=== PATIENT | male | born 1955 | race Caucasian/White ===

== ENCOUNTER → 2017-01-04 | Outpatient (CLI) | payer OTHER ==
--- NOTE | 2017-01-04 17:09 | KCIC ---
MR of the right shoulder Indication: Right shoulder pain after a fall on November 14, 2016. Technique: Standard multiplanar sequences are obtained. Findings: Acromioclavicular joint: Mildly degenerative, with undersurface small osteophytes. Rotator cuff: Complete full-thickness rupture of the supraspinatus and infraspinatus tendons, with 3 cm retraction and mild muscle atrophy. Acute edema within the infraspinatus and to a lesser extent supraspinatus muscles suggesting acute component of tear. Partial subscapularis tendon tear. Small effusion in the subdeltoid bursa. Mild rotator cuff muscle atrophy with fatty infiltration. Glenohumeral cartilage: No acute defect or advanced DJD. Fluid: Small joint effusion. Labrum: Mild signal in the superior labrum, but this is likely exaggerated by mild motion degradation. No definite labral tear. Biceps tendon: Mild tendinosis. Bones: Small cyst within the lesser tuberosity. This finding can be seen with coracohumeral impingement. No aggressive bone destruction or acute fracture. Impression:Large rotator cuff tear. Complete retracted supraspinatus and infraspinatus tendon rupture, and partial subscapularis tendon tear. Electronically signed by: Logan Juarez MD (01/04/2017 5:06 PM) [email or web address]
== END | disposition home or self-care (01) ==
LOC: KCIC MRI 15:59
PROVIDERS: ATTEND Family Medicine
DX: M75.101 Unspecified rotator cuff tear or rupture of right shoulder, not specified as traumatic (principal)
CPT/HCPCS: 73221

== ENCOUNTER → 2017-06-04 | Outpatient (CLI) | payer OTHER | END | disposition home or self-care (01) | LOC: KCIC MRI 08:31 | DX: S41.012A Laceration without foreign body of left shoulder, initial encounter (principal); S43.432A Superior glenoid labrum lesion of left shoulder, initial encounter; M75.22 Bicipital tendinitis, left shoulder; M43.06 Spondylolysis, lumbar region; M51.36 Other intervertebral disc degeneration, lumbar region; M48.061 Spinal stenosis, lumbar region without neurogenic claudication; X58.XXXA Exposure to other specified factors, initial encounter; Y93.89 Activity, other specified; Y92.89 Other specified places as the place of occurrence of the external cause; Y99.8 Other external cause status | CPT/HCPCS: 72148; 73221 ==

== ENCOUNTER → 2019-05-22 | Outpatient (CLI) | payer OTHER ==
--- NOTE | 2019-05-22 16:51 | KCIC ---
MRI Lumbar Spine without contrast History: Lumbago, acute low back pain into the left leg, shooting pain, bending injury Technique: Multiplanar, multi sequential noncontrast MR imaging was performed of the lumbar spine. Comparison: 06/04/2017 Findings: Lumbar vertebral body stature and AP alignment are overall maintained. There is variable mild to moderate L3-4, L2-3, and L1-2 degenerative disc disease, also mild L4-5 and L5-S1 degenerative disc disease. Degenerative disc disease has somewhat progressed L1-L2 through L3-4. There are multilevel annular tears such as posteriorly L1-L2 through L3-4. There is again hemangioma of the L2 vertebral body, also small focus of L1. Conus terminates at the superior aspect of L1. There is some nonspecific edema of the posterior subcutaneous fat of the lower back. T12-L1: Spinal canal and neural foramina are adequate. L1-L2: There is a minimal disc osteophyte complex and bulge slightly indenting the ventral thecal sac in the far lateral recesses. There is mild facet degenerative change. Neural foramina and spinal canal are overall adequate. L2-L3: There is again disc osteophyte complex and bulge slightly indenting the ventral thecal sac greater in the left lateral recess. There is mild prominence of posterior epidural fat centrally. There is minimal facet into change and buckling of the ligamentum flavum. There is mild narrowing of the far left lateral recess. There is probable small extrusion extending above the intervertebral disc space in the far left lateral recess and inferior left neural foramen although probably at least in part present previously estimated about 3 mm CC by about 5 mm transverse by 2 to 3 mm AP. This is near the undersurface of the exiting left L3 nerve root, [id number] narrowing of the proximal left neural foramen. Right neural foramen is overall adequate. L3-L4: There is again disc osteophyte complex and very shallow superimposed central protrusion more apparent on this exam. There is mild buckling of the ligamentum flavum and facet degenerative change. Spinal canal is not significantly narrowed. There is very mild inferior neural foramina compromise by disc osteophyte complex as seen previously. L4-L5: There is a minimal disc osteophyte complex and shallow protrusion. There is mild buckling of the ligamentum flavum and facet degenerative change. There is again moderate narrowing of the far left lateral recess primarily from posteriorly by facet and ligamentum flavum with contact of the descending left L5 nerve root, similar mild narrowing of the right lateral recess primarily from posteriorly. There is very mild narrowing of the inferior right neural foramen by disc osteophyte complex, left neural foramen not significantly narrowed. L5-S1: There is again [id number] facet degenerative change. There is again prominence of epidural fat in the lateral recesses bilaterally, some preserved central subarachnoid space. There is mild inferior narrowing of the right neural foramen by disc osteophyte complex, left neural foramen overall adequate. Impression: 1. Comparing with the May 2017 exam, there has been interval slight progression of multilevel degenerative disc disease greatest L1-L2 through L3-4. There is similar moderate left and mild right lateral recess stenosis as described at L4-5. There is also mild left lateral recess stenosis as described at L2-3. 2. There is [id number] narrowing of the proximal inferior left L2-3 neural foramen although likely at least in part present previously. There is other mild neural foramina compromise as described. Electronically signed by: Bonilla Perry MD (05/22/2019 4:48 PM) [email or web address]
== END | disposition home or self-care (01) ==
LOC: KCIC MRI 15:02
PROVIDERS: ATTEND Chiropractor
DX: M51.37 Other intervertebral disc degeneration, lumbosacral region (principal); M48.07 Spinal stenosis, lumbosacral region; M25.78 Osteophyte, vertebrae
CPT/HCPCS: 72148

== ENCOUNTER → 2019-08-28 | Outpatient (CLI) | payer OTHER ==
--- NOTE | 2019-08-28 15:11 | RAD ---
EXAM: FINGER(S) LEFT 08/28/2019 12:00 AM CLINICAL INDICATION:Pain in second finger of left hand, fell July 24 COMPARISON:None TECHNIQUE:2 views of the left hand FINDINGS:There is a tiny osseous density along the ulnar aspect of the second DIP joint. This is nonspecific but can be seen with a tiny avulsion injury. Otherwise, no fracture or malalignment. Joint spaces are maintained. Soft tissues normal. IMPRESSION:Tiny osseous density along the ulnar aspect of the second DIP joint. This is nonspecific but could be seen with a tiny avulsion injury. Electronically signed by: Nahomy Levine MD (08/28/2019 3:08 PM) [id number]
== END | disposition home or self-care (01) ==
LOC: RAD 12:33
PROVIDERS: ATTEND Family Medicine
DX: M79.645 Pain in left finger(s) (principal)
CPT/HCPCS: 73140

== ENCOUNTER → 2021-02-18 | Outpatient (CLI) | payer OTHER ==
--- NOTE | 2021-02-19 10:07 | KCIC ---
EXAM: AP pelvis, lateral view left hip DATE: 02/18/2021 12:58 PM INDICATION: Reason: Left hip pain 4 months, no known injury, evaluate for degenerative changes. / Spl . Instructions: / History: . COMPARISON: No Prior FINDINGS: No evidence of acute fracture or dislocation. Joint spaces are preserved without significant degenera tive/proliferative change. Small femoral head/neck junction osteophytes and left. No pubic symphysis or SI joint diastases. Vascular calcifications are seen. Moderate stool content partially profiled. IMPRESSION: 1. Mild left hip joint osteoarthritis. 2. No acute fracture or dislocation. Electronically signed by: Luis Culver MD (02/19/2021 10:04 AM) [id number]
== END ==
LOC: KCIC 12:55
PROVIDERS: ATTEND Family Medicine
DX: M16.12 Unilateral primary osteoarthritis, left hip (principal); M25.752 Osteophyte, left hip; M25.852 Other specified joint disorders, left hip
CPT/HCPCS: 73501